=== PATIENT | male | born 1990 | race Caucasian/White ===

== ENCOUNTER 2019-05-06 00:25 | Observation (INO) | payer OTHER ==
[2019-05-06 00:53] LABS: #Basophils 0.1 thou/uL (0.0-0.2); #Eosinphils 0.4 thou/uL (0.0-0.7); #Lymphocytes 3.4 thou/uL (1.20-3.40); #Monocytes 0.7 thou/uL (0.11-0.59); #Neutrophils 6.1 thou/uL (1.40-6.50); %Basophils 0.5 % (0.0-1.0); %Eosinophils 3.6 % (0.0-10.0); %Lymphocytes 31.8 % (21.0-51.0); %Monocytes 6.6 % (0.0-10.0); %Neutrophils 57.5 % (42.0-75.0); Hemoglobin 15.5 g/dL (14.0-18.0); Mean Corpuscular HGB CONC 35.6 g/dL (32.0-36.0); Mean Corpuscular Hemoglobin 30.4 pg (27.0-31.0); Mean Corpuscular Volume 85.3 fL (78.0-98.0); Platelet Count 246 thou/uL (130-400); RBC Distribution Width 12.2 % (11.5-14.5); Red Blood Cell (RBC) Count 5.12 mill/uL (4.70-6.10); White Blood Cell (WBC) Count 10.5 thou/uL (4.8-10.8)
[2019-05-06 01:11] LABS: ALT (SGPT) 19 U/L (8-55); AST (SGOT) 16 U/L (5-34); Acetaminophen Less than 6.0 mcg/mL (10.0-30.0); Albumin 4.7 g/dL (3.5-5.0); Alcohol Less than 10 mg/dL (Less than 10); Alkaline Phosphatase 82 U/L (40-150); Anion Gap 13 mmol/L (10-20); BUN (Urea Nitrogen) 19 mg/dL (8.9-20.6); Bilirubin, Total 0.8 mg/dL (0.2-1.2); Calc. Creatinine Clearance 0 mL/min (70-130); Calcium 9.7 mg/dL (7.8-10.44); Carbon Dioxide 27 mmol/L (22-29); Chloride 105 mmol/L (98-107); Estimated GFR-MDRD 87; Globulin 2.4 g/dL (2.4-3.5); Glucose 110 mg/dL (70-105); Potassium 3.5 mmol/L (3.5-5.1); Protein, Total 7.1 g/dL (6.0-8.3); Salicylate Less than 8.0 mg/dL (15.0-30.0); Sodium 141 mmol/L (136-145)
[2019-05-06] MEDS ORDERED: Acetaminophen 500 MG TAB ONE (01:32)
[2019-05-06 01:35] LABS: Amphetamine Not Detected (NotDetected); Barbiturates Screen Not Detected (NotDetected); Benzodiazepine Screen Not Detected (NotDetected); Cocaine Metabolite Screen Not Detected (NotDetected); Medtox Control Line Valid? VALID (VALID); Medtox Reader # READER 4; Methadone Not Detected (NotDetected); Methamphetamine Not Detected (NotDetected); Opiate Screen Not Detected (NotDetected); Oxycodone Screen Not Detected (NotDetected); Phencyclidine (PCP) Not Detected (NotDetected); THC/Cannabinoid Screen Not Detected (NotDetected); Tricyclic Screen Not Detected (NotDetected)
[2019-05-06] MEDS ORDERED: Ibuprofen 800 MG TAB ONE (04:51)
[2019-05-06 05:20] VITALS: BMI 32.5
--- NOTE | 2019-05-06 07:38 | CT ---
PRELIMINARY REPORT/[facility]/EMERGENCY AFTER HOURS PROCEDURE: EXAM: CT Head Without Contrast EXAM DATE/TIME: 05/06/2019 12:43 AM CLINICAL HISTORY: 29 years old, male; Altered mental status/memory loss; Confusion or disorientation; Patient HX: M29 p resents to ED for stroke like SX at 2330. PT denies feeling any weakness or numbness at the moment. P T is unable to report if he feels back to normal, reports "he can't remember. ". PT unable to answer questions directly at this time. Pt's reports PT woke her at 2330, was in bedroom hunched over, unable to stand up or walk correctly, reported numbness in face, unable to smile, could not put his c lothes on. PT unsure if he has a headache, reports he has C/O headache for past 3 days. PT woke at 1130 pm, last seen normal when going to bed at 930pm TECHNIQUE: Imaging protocol: Computed tomography of the head without contrast. COMPARISON: No relevant prior studies available. FINDINGS: Brain: Possible low-lying cerebellar tonsils. Only axial images provided. No brain hematuria. Nointra cranial hemorrhage. Ventricles: Normal. No ventriculomegaly. Bones/joints: Unremarkable. No acute fracture. Sinuses: Incidental sinus mucosal thickening present. No fluid levels to indicate sinusitis. Mastoid air cells: Visualized mastoid air cells are well aerated. Soft tissues: Unremarkable. IMPRESSION: 1. Possible low-lying cerebellar tonsils. Only axial images provided. 2. No brain hematuria. No intracranial hemorrhage. Thank you for allowing us to participate in the care of your patient. Dictated and Authenticated by: Kvng Low MD 05/06/2019 12:55 AM Central Time ([place] & [place]) FINAL REPORT BRAIN CT WITHOUT IV CONTRAST: EMERGENT AFTER HOURS EXAM TIME: 12:44 a.m. DATE: 05/06/2019. Somewhat low-lying cerebellar tonsils. No mass or acute hemorrhage. Sinus mucosal disease. This report is in agreement with the preliminary report. Consider followup nonemergent MRI. POS: [facility]
--- NOTE | 2019-05-06 08:22 | CT ---
PRELIMINARY REPORT/[facility]/EMERGENCY AFTER HOURS PROCEDURE: EXAM: CT Angiography Head Without And With Contrast EXAM DATE/TIME: 05/06/2019 1:04 AM CLINICAL HISTORY: 29 years old, male; Cognitive deficit; Altered mental status; Patient HX: M29 presents to ED for stro ke like SX at 2330. PT denies feeling any weakness or numbness at the moment. PT is unable to report if he feels back to normal, reports "he can't remember. " PT does not remember if he has had any n/v/ d. PT unable to answer questions directly at this time. Pt's reports PT woke her at 2330, was in bedroom hunched over, unable to stand up or walk correctly, reported numbness in face, unable to smi le, could not put his clothes on. PT denies drinking or drug use. PT unsure if he has a headache, wif alexandre reports he has C/O headache for past 3 days. PT woke at 1130 pm, last seen normal when going t o bed at 930pm. Denies abdominal pain. Hx- no known medical problems. TECHNIQUE: Imaging protocol: Computed tomographic angiography of the head without and with intravenous contrast. 3D rendering: MIP reconstructed images were created and reviewed. COMPARISON: CT Brain WO Con 05/06/2019 12:43 AM FINDINGS: Right internal carotid artery: Unremarkable. Intracranial segment is patent with no significant steno sis. No aneurysm. Right anterior cerebral artery: Unremarkable. No occlusion or significant stenosis. No aneurysm. Right middle cerebral artery: Unremarkable. No occlusion or significant stenosis. No aneurysm. Right posterior cerebral artery: Unremarkable. No occlusion or significant stenosis. No aneurysm. Right vertebral artery: Unremarkable. No occlusion or significant stenosis. No aneurysm. Left internal carotid artery: Unremarkable. Intracranial segment is patent with no significant stenosis. No aneurysm. Left anterior cerebral artery: Unremarkable. No occlusion or significant stenosis. No aneurysm. Left middle cerebral artery: Unremarkable. No occlusion or significant stenosis. No aneurysm. Left posterior cerebral artery: Unremarkable. No occlusion or significant stenosis. No aneurysm. Left vertebral artery: Unremarkable. No occlusion or significant stenosis. No aneurysm. Basilar artery: Unremarkable. No occlusion or significant stenosis. No aneurysm. HEAD: Brain: Unremarkable. No hemorrhage. No significant white matter disease. No edema. Ventricles: Normal. No ventriculomegaly. Bones/joints: Unremarkable. No acute fracture. Sinuses: Visualized sinuses are normal. No fluid levels. Mastoid air cells: Visualized mastoids are normal. No mastoid effusion. Soft tissues: Unremarkable. IMPRESSION: No acute findings. EXAM: CT Angiography Neck With Contrast EXAM DATE/TIME: 05/06/2019 1:04 AM CLINICAL HISTORY: 29 years old, male; Cognitive deficit; Altered mental status; Patient HX: M29 presents to ED for stro ke like SX at 2330. PT denies feeling any weakness or numbness at the moment. PT is unable to report if he feels back to normal, reports "he can't remember. " PT does not remember if he has had any n/v/ d. PT unable to answer questions directly at this time. Pt's reports PT woke her at 2330, was in bedroom hunched over, unable to stand up or walk correctly, reported numbness in face, unable to smi le, could not put his clothes on. PT denies drinking or drug use. PT unsure if he has a headache, wif alexandre reports he has C/O headache for past 3 days. PT woke at 1130 pm, last seen normal when going t o bed at 930pm. Denies abdominal pain. Hx- no known medical problems. TECHNIQUE: Imaging protocol: Computed tomographic angiography images of the neck with intravenous contrast using CT angiography protocol. 3D rendering: MIP reconstructed images were created and reviewed. COMPARISON: CT Brain WO Con 05/06/2019 12:43 AM FINDINGS: VASCULATURE: Right common carotid artery: Unremarkable. No stenosis. No dissection or occlusion. Right internal carotid artery: Unremarkable extracranial segment. No stenosis. No dissection or occlu dao. Right external carotid artery: Unremarkable. No occlusion or stenosis of the origin. Right vertebral artery: Unremarkable. No stenosis. No dissection or occlusion. Left common carotid artery: Unremarkable. No stenosis. No dissection or occlusion. Left internal carotid artery: Unremarkable extracranial segment. No stenosis. No dissection or occlusion. Left external carotid artery: Unremarkable. No occlusion or stenosis of the origin. Left vertebral artery: Unremarkable. No stenosis. No dissection or occlusion. NECK: Oropharynx: Symmetric prominence of the pharyngeal tonsils bilaterally. No peritonsillar abscess. Bones/joints: No acute fracture. Soft tissues: Normal. No significant soft tissue swelling. IMPRESSION: No acute vascular findings. COMMENT: Reference per NASCET criteria for degree of stenosis: Mild: less than 50% stenosis. Moderate: 50-69% stenosis. Severe: 70-94% stenosis. Near occlusion: 95-99% stenosis. Thank you for allowing us to participate in the care of your patient. Dictated and Authenticated by: Kvng Low MD 05/06/2019 1:26 AM Central Time ([place] & [place]) FINAL REPORT CT ANGIOGRAM HEAD WITH 3D RENDERING CT ANGIOGRAM NECK WITH 3D RENDERING: No major branch occlusion intracranially. No significant carotid occlusion or stenosis in the neck. Unremarkable vertebral arteries bilaterally. Unremarkable brain CTA with 3D rendering. Unremarkable neck CTA with 3D rendering. This report is in agreement with the preliminary report. POS: [facility]
[2019-05-06] MEDS ORDERED: Ondansetron PF 4 MG/2 ML Vial IVP PRN (10:42)
[2019-05-06] MEDS ORDERED: Acetaminophen 325 MG TAB PO PRN (10:42)
[2019-05-06] MEDS ORDERED: Enoxaparin Sodium 40 MG/0.4 ML SYRINGE SC SCH (10:45)
[2019-05-06] MEDS ORDERED: Aspirin 325 mg Enteric Coated Tablet PO SCH (11:00)
--- NOTE | 2019-05-06 11:37 | HP ---
PRIMARY CARE PROVIDER: None. CHIEF COMPLAINT: Altered mental sensorium. HISTORY OF PRESENT ILLNESS: Following history is obtained by talking to the patient and spouse at the bedside. A 29-year-old male with no known past medical history, brought in by spouse due to acute onset of mental status change. The patient who has been having headaches in the last 4 days, reportedly woke up around 11 o'clock and was unable to move around due to generalized weakness. Spouse also reported that the patient could not verbalize initially and could not even get up from bed. He later was noticed to have involuntary movement of both upper and lower extremities, especially lower extremities. also reported that he had some garbled speech and facial droop earlier. He later was able to get up and walked to the car, but there was apraxia as well as gait instability and some confusion as the patient could not locate the car. On presentation to the emergency room, the patient could still not talk, but later on started verbalizing. He reported that he knew what to say, but he could not get the words to come out. The patient has been taking ibuprofen 800 mg in the morning and 800 mg in the night as well as acetaminophen 1000 mg in the morning and 1000 mg in the evening for headache since onset 3 days prior to presentation. He denied dizziness as well as nausea, vomiting, shortness of breath, abdominal pain, dysuria, or hematuria. He, however, admitted to nausea and vomiting, but that was in the ER after contrast study. The patient reports being back to baseline, and endorsed that he is back to baseline. reported that he noticed that he was back to baseline from 8 a.m. today. Of note, the patient reportedly had similar episode of headaches when he was 19, for which he took several some medication daily with resolution. He denied prior history of mental status change. The patient denied recreational drug use. He is a former smoker, quit about 6 years ago. There is no history of fever, dysuria, change in bowel habit, or leg swelling. PAST MEDICAL HISTORY: 1. Scalp skin cancer status post resection. 2. Headaches. PAST SURGICAL HISTORY: Resection of scalp skin cancer. FAMILY HISTORY: Significant for hypertension in mother. The patient does not know father's history. SOCIAL HISTORY: The patient lives with spouse. He is a former smoker, but quit about 6 years ago. Denied recreational drug use currently, but admitted to using marijuana in the past. ALLERGIES: NO KNOWN DRUG ALLERGIES REPORTED. HOME MEDICATIONS: 1. Acetaminophen 1000 mg p.o. b.i.d. 2. Ibuprofen 800 mg p.o. b.i.d. REVIEW OF SYSTEMS: A 12-point review of system performed was negative other than pertinent positives and negatives included in the history of present illness. PHYSICAL EXAMINATION: VITAL SIGNS: Initial vitals on presentation to the emergency room are as follows; BP 147/83, pulse 92, respiratory rate 18, SpO2 of 96% on room air, and temperature 97.4. Most current vitals are as follows; temperature 97.8, pulse 82, respiratory rate 18, SpO2 of 99% on room air, and blood pressure 107/63. GENERAL: Heavy built, healthy-looking young male, in no distress. Afebrile. Anicteric. Acyanotic. HEENT: Normocephalic and atraumatic. Pupils are reacting to light. Oral mucosa is moist. NECK: Supple and nontender with good range of motion. No masses or lymphadenopathy appreciated. CARDIOVASCULAR: Regular rhythm and rate with normal heart sounds 1 and 2. No murmur was appreciated. RESPIRATORY: Good air entry bilaterally with no obvious crackle or rhonchi or use of accessory muscles. GI: Full, soft, nontender, and nondistended with normal bowel sounds. EXTREMITIES: Grossly normal looking, atraumatic with no edema or erythema. Distal pulses are palpable. SCALDER: Conscious, alert, and oriented x3 with appropriate mental status. Cranial nerves 2 through 12 are intact. The patient moves all extremities. Sensation is grossly intact. There is no drift of upper limb or lower limbs. The patient is ambulant. Psychiatric: Normal affect with good insight. DIAGNOSTIC DATA: CBC showed WBC count of 10.5, hemoglobin of 15.5, MCV of 85.3, and platelet of 246. CMP showed sodium 141, potassium 3.5, chloride 105, CO2 of 27, BUN 19, creatinine 1.02, glucose 110, and calcium 9.7. Total bilirubin 0.8, AST 16, ALT 19, alkaline phosphatase 82, total protein 7.1, albumin 4.7, and globulin 2.4. Toxicology showed salicylate less than 8, acetaminophen less than 6, plasma alcohol less than 10. Urine drug screen was negative or true. CT scan of the brain; possible low-lying cerebellar tonsils, otherwise no mass or acute hemorrhage. Incidental sinus mucosal thickening, but with no fluid level were noted. CT angio of the brain showed no acute vascular findings. CT angio of the neck showed no acute finding. No stenosis or aneurysm was noted. ASSESSMENT: 1. Transient ischemic attack. 2. Acute apraxia and gait instability as well as mental status change due to transient ischemic attack. 3. Headache syndrome: Etiology is unclear. Query migraine. PLAN: 1. We will start analgesics. 2. We will also start aspirin and Lipitor. 3. We will get MRI of the brain to further access the cerebellar tonsils that are noticed to be low-lying on CT. 4. We will also get echocardiogram. 5. We will also consult Neurology for TIA and headache syndrome. 6. Diet as tolerated. We will continue neuro checks. 7. We will get PT and OT to evaluate and treat as appropriate. Job ID: [id number]
[2019-05-06 11:51] LABS: Bacteria/HPF None Seen HPF (None Seen); Bilirubin Negative (Negative); Blood, Urine Negative (Negative); Clarity Clear (Clear); Glucose, Urine (Dipstick) Normal (Negative); Leukocyte Negative Leu/uL (Negative); Nitrite Negative (Negative); Protein, Urine (Dipstick) Negative (Neg-Trace); Squamous Epithelial None Seen HPF (0-3); Urobilinogen Normal mg/dL (Less than 2); WBC/HPF 0-3 HPF (0-3)
[2019-05-06 11:52] LABS: Urine Culture Reflex No No
[2019-05-06] MEDS ORDERED: ISOVUE-370 76%-LOCM 1 ML ONE (13:09)
[2019-05-06] MEDS: Famotidine 20 MG TAB PO SCH (19:35)
[2019-05-06] MEDS: traMADol HCl 50 MG TAB PO PRN (19:35)
[2019-05-06] MEDS ORDERED: Atorvastatin Calcium 40 MG TAB PO SCH (21:00)
[2019-05-07] MEDS: traMADol HCl 50 MG TAB PO PRN ×3 (03:40→14:30)
[2019-05-07] MEDS ORDERED: Benzonatate 100 MG CAP PO PRN (03:56)
[2019-05-07] MEDS ORDERED: guaiFENesin 200 MG TAB PO PRN (03:56)
[2019-05-07] MEDS ORDERED: Ibuprofen 600 MG TAB PO SCH (04:45)
[2019-05-07] MEDS: Ondansetron ODT 4 MG TAB PO PRN ×2 (05:47→14:30)
[2019-05-07 06:34] LABS: ALT (SGPT) 18 U/L (8-55); AST (SGOT) 17 U/L (5-34); Albumin 4.5 g/dL (3.5-5.0); Alkaline Phosphatase 71 U/L (40-150); Anion Gap 11 mmol/L (10-20); BUN (Urea Nitrogen) 15 mg/dL (8.9-20.6); Calc. Creatinine Clearance 209 mL/min (70-130); Calcium 9.8 mg/dL (7.8-10.44); Carbon Dioxide 25 mmol/L (22-29); Cardiac Risk 3.1 (Less than 4.5); Chloride 106 mmol/L (98-107); Cholesterol 91 mg/dl (< 200 Desired); Estimated GFR-MDRD Greater than 90; Globulin 2.7 g/dL (2.4-3.5); Glucose 129 mg/dL (70-105); HDL Cholesterol 29 mg/dL (>60 Neg Risk); LDL Cholesterol, Calculated 44 mg/dL; Potassium 3.6 mmol/L (3.5-5.1); Protein, Total 7.2 g/dL (6.0-8.3); Sodium 138 mmol/L (136-145); Triglycerides 91 mg/dL (Less than 150)
[2019-05-07] MEDS: Famotidine 20 MG TAB PO SCH (07:52)
[2019-05-07] MEDS ORDERED: Enoxaparin Sodium 40 MG/0.4 ML SYRINGE SC SCH (09:00)
[2019-05-07] MEDS ORDERED: Aspirin 325 mg Enteric Coated Tablet PO SCH (09:00)
[2019-05-07] MEDS ORDERED: Metoclopramide HCl 10 MG/2 ML VIAL IVP SCH (09:30)
[2019-05-07] MEDS ORDERED: SUMAtriptan Succinate 25 MG TAB PO SCH (09:30)
[2019-05-07] MEDS ORDERED: Ketorolac Tromethamine 30 MG/ML VIAL IVP SCH (09:30)
--- NOTE | 2019-05-07 09:52 | PDOC.HOSPP ---
- Subjective Encounter Date: 05/07/19 Encounter Time: 09:51 Subjective: Admitted with transient altered mental status. Mental status is back to baseline but he contiuous to complain opf headaches despite treatment with tramadol and ibuprofen. Rated at 10/10. No nausea, vomiting or focal weakness. - Objective Vital Signs & Weight: Vital Signs (12 hours) Temp Pulse Resp BP BP Pulse Ox 05/07/19 07:01 98.1 F 78 16 118/64 99 05/07/19 03:40 97.9 F 87 16 134/79 96 Weight Weight 257 lb 6.4 oz I&O: 05/06/19 05/07/19 05/08/19 06:59 06:59 06:59 Intake Total 240 1550 Output Total 500 Balance 240 1050 Result Diagrams: 05/06/19 00:40 05/07/19 06:13 Hospitalist ROS - Medication Medications: Active Medications Generic Name Dose Route Start Last Admin Trade Name Freq PRN Reason Stop Dose Admin Acetaminophen 650 mg 05/06/19 10:42 05/06/19 11:15 Tylenol PO 650 mg Q4H PRN Administration Headache/Fever/Mild Pain (1-3) Aspirin 325 mg 05/07/19 09:00 05/07/19 07:52 Ecotrin PO 325 mg DAILY JOSE Administration Atorvastatin Calcium 40 mg 05/06/19 21:00 05/06/19 19:34 Lipitor PO 40 mg HS JOSE Administration Benzonatate 100 mg 05/07/19 03:56 05/07/19 04:32 Tessalon PO 100 mg Q8H PRN Administration Cough Enoxaparin Sodium 40 mg 05/07/19 09:00 05/07/19 07:52 Lovenox SC 40 mg 0900 JOSE Administration Famotidine 20 mg 05/06/19 21:00 05/07/19 07:52 Pepcid PO 20 mg BID JOSE Administration Guaifenesin 200 mg 05/07/19 03:56 05/07/19 04:32 Organ-I Nr PO 200 mg Q4H PRN Administration Congestion Ketorolac Tromethamine 30 mg 05/07/19 09:30 05/07/19 09:28 Toradol IVP 05/07/19 11:30 30 mg NOW JOSE Administration Metoclopramide HCl 10 mg 05/07/19 09:30 05/07/19 09:28 Reglan IVP 05/07/19 11:30 10 mg NOW JOSE Administration Ondansetron HCl 4 mg 05/06/19 10:42 05/07/19 05:47 Zofran Odt PO 4 mg Q6H PRN Administration Nausea/Vomiting Sumatriptan Succinate 25 mg 05/07/19 09:30 05/07/19 09:32 Imitrex PO 05/07/19 11:30 25 mg NOW JOSE Administration Tramadol HCl 50 mg 05/06/19 10:44 05/07/19 07:51 Ultram PO 50 mg Q4H PRN Administration Headache - Exam General Appearance: awake alert Eye: anicteric sclera ENT: normocephalic atraumatic, moist mucosa Neck: supple, symmetric, no JVD Heart: RRR Respiratory: CTAB Gastrointestinal: soft, non-tender, non-distended, normal bowel sounds Extremities: no cyanosis, no edema Neurological: CN's grossly intact, normal sensation to touch, no focal deficits Musculoskeletal: normal tone, normal strength, no muscle wasting Psychiatric: normal affect, A&O x 3 Hosp A/P (1) TIA (transient ischemic attack) Code(s): G45.9 - TRANSIENT CEREBRAL ISCHEMIC ATTACK, UNSPECIFIED Status: Acute (2) Persistent headaches Code(s): R51 - HEADACHE Status: Acute - Plan Give toradol, reglan and imitrex x 1. Awaiting MRI, and Echo. Awaiting Neurology evaluation
--- NOTE | 2019-05-07 12:25 | MRI ---
MRI BRAIN WITHOUT CONTRAST: Date: 05/07/19 HISTORY: TIA. FINDINGS: Correlation is made with the previous day's CT scan. No restricted diffusion is seen. No evidence of infarct, hemorrhage, midline shift, or abnormal extra -axial fluid collections noted. The ventricular size is normal and the basilar cisterns are patent. L ow-lying cerebellar tonsils are seen. There is mucosal disease in the paranasal sinuses. IMPRESSION: 1. No evidence of acute intracranial process. 2. Low-lying cerebellar tonsils. 3. Mucosal disease in the paranasal sinuses. POS: [facility]
[2019-05-07 16:04] VITALS: BP 123/59; TEMP 98.3
--- NOTE | 2019-05-07 21:21 | CON ---
DATE OF CONSULTATION: 05/07/2019 CONSULTING PHYSICIAN: Hospitalist Service. IMPRESSION: Confusional migraine. PLAN: 1. Maxalt 10 mg as needed. 2. Office followup. HISTORY OF PRESENT ILLNESS: Mr. Pearson is a 29-year-old man, who came in with a prolonged headache and some degree of confusion, reported the pain was retro-orbital and throbbing, was associated with light and sound sensitivity. There was some nausea associated with it as well. He had had it for six days and could not break the pain. He came into the emergency room, subsequently admitted. Workup included a CT and CT angiogram, which were both negative. He had an MRI of the brain and echocardiogram done, which were both unremarkable. His headache has abated. He reports having bad headaches back in high school for a period of time and was treated by physician for them. He had been bothered with him in quite some time. He is uncertain as to why this one came on. PAST MEDICAL HISTORY: Migraine. ALLERGIES: NONE REPORTED. SOCIAL HISTORY: He is . No illicit drug use. FAMILY HISTORY: Noncontributory. MEDICATION LIST: None. REVIEW OF SYSTEMS: Ten-system review of systems is otherwise negative. PHYSICAL EXAMINATION: VITAL SIGNS: Blood pressure 120/84, pulse 90, respirations 18, and temperature 98.0. HEENT: Pupils are equal and reactive. Conjunctivae clear. Oropharynx clear. Cranium, normocephalic and atraumatic. NECK: Supple. No lymphadenopathy. EXTREMITIES: No cyanosis or edema. NEUROLOGIC: Alert and appropriate. His speech is fluent and clear. Cranial nerves are intact. Motor strength is equal without fix or drift. Sensations intact. He can walk independently. SUMMARY: A 29-year-old male with a prolonged migraine with some secondary confusion. He appears to be back to his baseline. I would be happy to follow up with him as an outpatient. Job ID: [id number]
--- NOTE | 2019-05-08 13:40 | DIS ---
DATE OF ADMISSION: 05/06/2019 DATE OF DISCHARGE: 05/07/2019 PRIMARY CARE PHYSICIAN: None. DISCHARGE DIAGNOSES: 1. Confusional migraine. 2. Transient ischemic attack. 3. Persistent headaches. CONSULTS: Neurology. HOSPITAL COURSE: A 29-year-old male with no past medical history other than remote history of headache syndrome, admitted with transient altered mental status of confusion and involuntary lower extremity movements and gait instability associated with headaches. Involuntary movement and confusion subsided, but headache persisted. The patient was evaluated with CT scan and MRI, which were unremarkable. He was treated with sumatriptan, Ketoralac, and Reglan with improvement of headache. The patient was later seen by a neurologist, who thinks the patient has confusional migraine and prescribed p.r.n. Maxalt for patient. The patient remained stable and was discharged home. PHYSICAL EXAMINATION: VITAL SIGNS: Temperature 98.3, pulse 72, respiratory rate 18, SpO2 of 98% on room air, and blood pressure is 122/59. GENERAL: Healthy-looking young male, in no distress. Afebrile. Anicteric. Acyanotic. HEENT: Normocephalic and atraumatic. Pupils are equal and reacting to light. CARDIOVASCULAR: Regular rhythm and rate. Normal heart sounds one and two. RESPIRATORY: Good air entry bilaterally with no crackle or rhonchi or use of accessory muscles. GI: Full, soft, nontender, and nondistended with normal bowel sounds. EXTREMITIES: Grossly normal looking atraumatic with no edema or erythema. BARTENDER HELPER: Conscious, alert, and oriented x3 with appropriate mental status. Cranial nerves 2 through 12 are grossly intact. The patient moves all extremities. The patient is ambulant with normal gait. DISCHARGE DISPOSITION: Home. DISCHARGE CONDITION: Improved. DISCHARGE MEDICATIONS: 1. Aspirin 325 mg p.o. daily. 2. Maxalt 10 mg p.o. b.i.d. p.r.n. for headaches. Job ID: [id number]
--- NOTE | 2019-05-09 18:06 | PDOC.EVN ---
Event Note - Event Note Event Note: Discharge summary dictated. #[id number]
== END 2019-05-07 19:14 | disposition home or self-care (01) ==
LOC: ERS 00:25 → 2SW 03:00
PROVIDERS: ADMIT Internal Medicine; ATTEND Internal Medicine
DX: G45.9 Transient cerebral ischemic attack, unspecified (principal); G43.809 Other migraine, not intractable, without status migrainosus; G44.89 Other headache syndrome; Z87.891 Personal history of nicotine dependence
CPT/HCPCS: 36415; 70450; 70496; 70498; 70551; 80053; 80061; 80306; 80307; 81001; 85025; 93005; 93306; 96372; 96374; 96375; G0378; J1650; J1885; J2405; J2765; Q0162; Q9966

== ENCOUNTER 2019-05-08 09:06 | Emergency (ER) | payer OTHER ==
[2019-05-08] MEDS ORDERED: Acetaminophen 500 MG TAB ONE (10:03)
[2019-05-08] MEDS ORDERED: diphenhydrAMINE 50 MG/ML VIAL ONE (10:03)
[2019-05-08] MEDS ORDERED: Metoclopramide HCl 10 MG/2 ML VIAL ONE (10:03)
[2019-05-08] MEDS ORDERED: Ketorolac Tromethamine 30 MG/ML VIAL ONE (11:15)
[2019-05-08] MEDS ORDERED: methylPREDNISolone Sod Succ/PF 125 MG/2 ML VIAL ONE (11:15)
[2019-05-08] MEDS ORDERED: Magnesium 2 GM/50 ML BAG (IN WATER) ONE (12:05)
--- NOTE | 2019-05-11 22:33 | EKG ---
Test Reason : Blood Pressure : / mmHG Vent. Rate : 065 BPM Atrial Rate : 065 BPM P-R Int : 148 ms QRS Dur : 112 ms QT Int : 412 ms P-R-T Axes : 015 025 020 degrees QTc Int : 428 ms Normal sinus rhythm Normal ECG Confirmed by JUSTIN SHUKLA, JADEN Allen ([id number]), editorial assistant DOMINICK RIZZO ([id number]) on 05/11/2019 10:32:38 PM Referred By: Confirmed By:JADEN ANDERSON MD
== END 2019-05-08 13:28 | disposition home or self-care (01) ==
LOC: ERS 09:06
DX: G43.909 Migraine, unspecified, not intractable, without status migrainosus (principal); Z87.891 Personal history of nicotine dependence
CPT/HCPCS: 93005; 96365; 96367; 96375; J1200; J1885; J2765; J2930; J3475